=== PATIENT | female | born 1935 | race Caucasian/White ===

== ENCOUNTER 2019-03-28 20:03 | Emergency (ER) | payer MEDICARE, MEDICAID ==
--- NOTE | 2019-03-28 20:20 | ER Document Report ---
ED Extremity Problem, Upper - General Chief Complaint: Arm Injury Stated Complaint: FALL Time Seen by Provider: 03/28/19 20:08 Notes: Patient is an 83-year-old female who presents the emergency department with a chief complaint of right arm pain after a fall. She was turning and she felt dizzy and she fell on her right side. She was brought in by ambulance to the emergency department and she was given a total of 100 mcg of fentanyl in route. She denies any neck pain. She has a past medical history of hypertension, hyperlipidemia. Denies any chest pain, abdominal pain, hip pain, or any other symptoms. TRAVEL OUTSIDE OF THE [place] IN LAST 30 DAYS: No - Related Data Allergies/Adverse Reactions: No Known Allergies Allergy (Unverified 06/29/11 04:38) Past Medical History - Social History Smoking Status: Unknown if Ever Smoked Family History: Reviewed & Not Pertinent - Past Medical History Cardiac Medical History: Reports: Hx Hypertension Denies: Hx Coronary Artery Disease, Hx Heart Attack Pulmonary Medical History: Denies: Hx Asthma, Hx Bronchitis, Hx COPD, Hx Pneumonia Neurological Medical History: Denies: Hx Cerebrovascular Accident, Hx Seizures Endocrine Medical History: Reports: Hx Diabetes Mellitus Type 1, Hx Diabetes Mellitus Type 2 Musculoskeletal Medical History: Reports Hx Arthritis Past Surgical History: Reports: Hx Hysterectomy, Hx Orthopedic Surgery - L eft knee. Denies: Hx Pacemaker - Immunizations Hx Diphtheria, Pertussis, Tetanus Vaccination: Yes Hx Pneumococcal Vaccination: 11/08/11 Review of Systems - Review of Systems Notes: REVIEW OF SYSTEMS: CONSTITUTIONAL : Denies recent illness. Denies recent unintentional weight loss. Denies fever, chills, or sweats. EENT: Denies eye, ear, throat, or mouth pain, discharge, or symptoms. Denies nasal or sinus congestion. CARDIOVASCULAR: Denies chest pain. RESPIRATORY: Denies shortness of breath, cough, congestion, difficulty breathing, or wheezing. GASTROINTESTINAL: Denies nausea, vomiting, and diarrhea. Denies abdominal pain. Denies constipation. GENITOURINARY: Denies difficulty urinating, burning, blood in urine, urgency or frequency. MUSCULOSKELETAL: See HPI SKIN: Denies rash, itchiness, or lesions HEMATOLOGIC : Denies easy bruising or bleeding. LYMPHATIC: Denies swollen, painful, enlarged glands. NEUROLOGICAL: See HPI PSYCHIATRIC: Denies stress, anxiety, alteration in sleep patterns, or depression. All other systems reviewed and negative. Physical Exam - Vital signs Vitals: Resp BP Pulse Ox 19 148/116 H 100 03/28/19 20:10 03/28/19 20:10 03/28/19 20:10 - Notes Notes: PHYSICAL EXAMINATION: GENERAL: Appears well, healthy, well-nourished, no acute distress. HEAD: Normocephalic, atraumatic. EYES: PERRL, conjunctiva normal, all extraocular movements intact, sclera nonicteric ENT: Moist mucous membranes. NECK: Supple, no noticeable swelling, redness, rash. Normal range of motion. LUNGS: Equal breath sounds bilaterally and clear to auscultation. No wheezes rales or rhonchi. CARDIOVASCULAR: S1-S2, regular rate, regular rhythm. Radial pulses 2+, normal. ABDOMEN: Normoactive bowel sounds. Soft, nontender, no guarding, no rebound tenderness, and no masses palpated. EXTREMITIES: Tenderness and deformity to right forearm. No deformity to right hand, but tenderness noted throughout the whole hand. NEUROLOGICAL: Moves all extremities upon command. Strength 5/5 in all extremities. PSYCH: Normal mood, normal affect. SKIN: Warm, dry. No rash, lesions, ulcerations noted. Normal skin turgor. Course - Re-evaluation Re-evalutation: 03/28/19 20:28 Patient is able to flex and extend all digits with no difficulty. She does have a deformity noted to her right forearm. X-rays will be obtained. I will also do a CT of the head and chest x-ray to rule out any possible cause of why she fell. She will also have basic labs and a urinalysis done. 03/28/19 21:[address] of the head shows chronic changes, which is to be expected. She has a comminuted fracture noted in her wrist. She will be provided a splint. 03/28/19 22:51 Patient has a comminuted impacted intraocular intra-articular fracture of the distal radius and distal ulna. She also has a urinary tract infection, which is why she felt may be the reason why she felt dizzy and fell. She will be started on Keflex. She will stop follow-up with her orthopedic doctor, Dr. Medellin in [facility]. She will also follow-up with her primary care provider in regards to the urinary tract infection. Her urine will be sent for culture. She has a mild leukocytosis, which is most likely because she has a urinary tract infection. Her chemistries are unremarkable. Her troponin was negative. Her EKG was normal. Chest x-ray did not show any pneumonia. I discussed the chest x-ray with Dr. Gomez. Patient will be placed in a short arm splint. Follow-up precautions were given. Verbal discharge instructions were given to the patient. They verbalized understanding. They are stable for discharge. - Vital Signs Vital signs: Temp Pulse Resp BP Pulse Ox 98.2 F 19 140/85 H 99 03/28/19 20:14 03/28/19 23:02 03/28/19 23:02 03/28/19 23:02 - Laboratory Result Diagrams: 03/28/19 20:51 03/28/19 20:51 Laboratory results interpreted by me: 03/28/19 03/28/19 03/28/19 20:51 20:51 21:43 WBC 11.8 H RDW 14.1 H Seg Neutrophils % 79.6 H Absolute Neutrophils 9.4 H Chloride 111 H BUN 26 H Creatinine 1.44 H Est GFR ( Amer) 42 L Est GFR (Non-Af Amer) 35 L Urine Protein 30 H Urine Blood MODERATE H Ur Leukocyte Esterase LARGE H - EKG Interpretation by Me Additional EKG results interpreted by me: 03/28/19 20:29 Sinus rhythm. Rate 80. MO 144; QRS 94; QT 388; QTc [address] elevations or depressions noted. Discharge - Discharge Clinical Impression: Closed fracture distal radius and ulna Qualifiers: Encounter type: initial encounter Laterality: right Qualified Code(s): S52.501A - Unspecified fracture of the lower end of right radius, initial encounter for closed fracture Urinary tract infection Qualifiers: Urinary tract infection type: acute cystitis Hematuria presence: without hematuria Qualified Code(s): N30.00 - Acute cystitis without hematuria Condition: Stable Disposition: HOME, SELF-CARE Additional Instructions: You were seen today in the emergency department for a fall. You have a urinary tract infection, which may be the reason why you fell. You are being started on antibiotics. Please take all your antibiotics as prescribed. Please follow-up with orthopedics in regards to the fracture. You are also being provided pain medication. You can only take this medication if you absolutely need it. Please try to take Tylenol 1000 mg and ibuprofen 600 mg every 6 hours for your pain and only take the [place] for breakthrough pain. Prescriptions: Hydrocodone/Acetaminophen [[place] 5-325 mg Tablet] 1 tab PO Q6HP PRN #10 tablet PRN Reason: Cephalexin [Keflex] 500 mg PO BID #14 capsule Fluconazole [Diflucan] 150 mg PO ONCE PRN #2 tablet PRN Reason:
--- NOTE | 2019-03-28 20:54 | RADIOLOGY REPORT (SQ) ---
CT HEAD WITHOUT IV CONTRAST EXAM DATE: 03/28/2019 8:17 PM CDT HISTORY: fall. COMPARISON: 07/27/2014 TECHNIQUE: CT scan of the brain without IV contrast. This exam was performed according to our departmental dose-optimization program, which includes automated exposure control, adjustment of the mA and/or kV according to patient size and/or use of iterative reconstruction technique. FINDINGS: Diffuse involutional changes are present. There are scattered areas of hypoattenuation within the periventricular white matter, which likely represent chronic microvascular ischemia. Old lacunar infarct in the right basal ganglia. No evidence of acute infarction, intracranial hemorrhage, extra-axial fluid collection, or midline shift. No air-fluid levels are seen in the paranasal sinuses to suggest acute sinusitis. No depressed skull fracture. IMPRESSION: 1. No acute intracranial findings. 2. Senescent changes with chronic microvascular ischemia.
--- NOTE | 2019-03-28 21:03 | RADIOLOGY REPORT (SQ) ---
EXAM DESCRIPTION: XR CHEST 1 VIEW COMPLETED DATE/TME: 03/28/2019 20:17 CLINICAL HISTORY: 83 years, Female, fall COMPARISON: None. NUMBER OF VIEWS: One TECHNIQUE: Single frontal view of the chest was obtained. LIMITATIONS: None. FINDINGS: Cardiac and mediastinal contours are normal. Patchy opacity is evident about the periphery of the right lung base. No pleural effusion or pneumothorax. IMPRESSION: Patchy opacity about the periphery of the right lung base. Consider atelectasis or pneumonia to include aspiration. Suggest follow-up to clearing of (4-6 weeks). copyright 2010 [employer]- All Rights Reserved
--- NOTE | 2019-03-28 21:05 | RADIOLOGY REPORT (SQ) ---
EXAM DESCRIPTION: XR FOREARM 2 VIEWS COMPLETED DATE/TME: 03/28/2019 20:16 CLINICAL HISTORY: 83 years, Female, fall COMPARISON: None. NUMBER OF VIEWS: Three TECHNIQUE: Frontal, oblique, and lateral radiographs were obtained. LIMITATIONS: None. FINDINGS: Visualized is a comminuted impacted intra-articular fracture involving the distal radial metaphysis. In addition, there is a separate fracture deformity involving the distal ulnar metaphysis which appears to extend into the ulnar styloid. No additional osseous anomalies are appreciated. No large elbow joint effusion is appreciated. IMPRESSION: Comminuted, impacted intra-articular fracture involving the distal radial metaphysis with additional distal ulnar metaphyseal fracture extending into the ulnar styloid. copyright 2010 [employer]- All Rights Reserved
--- NOTE | 2019-03-28 21:06 | RADIOLOGY REPORT (SQ) ---
EXAM DESCRIPTION: XR HAND 3 OR MORE VIEWS COMPLETED DATE/TME: 03/28/2019 20:16 CLINICAL HISTORY: 83 years, Female, fall COMPARISON: None. NUMBER OF VIEWS: Three TECHNIQUE: Frontal, oblique, and lateral radiographs were obtained. LIMITATIONS: None. FINDINGS: Visualized is a comminuted intra-articular impaction fracture involving the distal radial metaphysis with additional fracture deformity involving the distal ulnar metaphysis extending to the ulnar styloid. The distal radial fracture deformity appears mildly dorsally angulated. No additional osseous anomalies are appreciated. IMPRESSION: Comminuted intra-articular impaction fracture involving the distal radial metaphysis with additional fracture deformity involving the distal ulnar metaphysis extending into the ulnar styloid. copyright 2010 [employer]- All Rights Reserved
[2019-03-28 21:15] LABS: ABSOLUTE BASOPHILS # (AUTO) 0.1 10^3/uL (0.0-0.2); ABSOLUTE EOSINOPHILS # (AUTO) 0.1 10^3/uL (0.0-0.6); ABSOLUTE LYMPHOCYTES (AUTO) 1.8 10^3/uL (0.5-4.7); ABSOLUTE MONOCYTES (AUTO) 0.4 10^3/uL (0.1-1.4); ABSOLUTE NEUT (AUTO) 9.4 10^3/uL (1.7-8.2); BASOPHILS % (AUTO) 0.8 % (0-2); HEMATOCRIT 38.6 % (36.0-47.0); HEMOGLOBIN 12.9 g/dL (12.0-15.5); LYMPHOCYTES % (AUTO) 15.2 % (13-45); MEAN CORPUSCULAR HEMOGLOBIN 29.2 pg (27.0-33.4); MEAN CORPUSCULAR HGB CONC 33.4 g/dL (32.0-36.0); MEAN CORPUSCULAR VOLUME 87 fl (80-97); MONOCYTES % (AUTO) 3.4 % (3-13); PLATELET COUNT 252 10^3/uL (150-450); RED BLOOD COUNT 4.42 10^6/uL (3.72-5.28); RED CELL DISTRIBUTION WIDTH 14.1 % (11.5-14.0); SEGMENTED NEUTROPHILS % (AUTO) 79.6 % (42-78); TOTAL CELLS COUNTED % (AUTO) 100 %; WHITE BLOOD COUNT 11.8 10^3/uL (4.0-10.5)
[2019-03-28] MEDS ORDERED: HYDROCODONE/ACETAMINOPHEN 5-325 MG TABLET PO ONE (21:16)
[2019-03-28 21:33] LABS: ALANINE AMINOTRANSFERASE 13 U/L (9-52); ALBUMIN 4.4 g/dL (3.5-5.0); ALKALINE PHOSPHATASE 71 U/L (38-126); ANION GAP 10 (5-19); ASPARTATE AMINO TRANSFERASE 23 U/L (14-36); BILIRUBIN,DIRECT 0.4 mg/dL (0.0-0.4); BILIRUBIN,TOTAL 0.5 mg/dL (0.2-1.3); BLOOD UREA NITROGEN 26 mg/dL (7-20); CALCIUM 9.3 mg/dL (8.4-10.2); CARBON DIOXIDE 22 mmol/L (22-30); CHLORIDE 111 mmol/L (98-107); CREATINE KINASE 74 U/L (30-135); GLUCOSE 110 mg/dL (75-110); POTASSIUM 4.2 mmol/L (3.6-5.0); TOTAL PROTEIN 7.8 g/dL (6.3-8.2)
[2019-03-28 21:45] LABS: CREATINE KINASE MB 0.55 ng/mL (<4.55)
[2019-03-28 21:49] LABS: TROPONIN I < 0.012 ng/mL
[2019-03-28 22:20] LABS: APPEARANCE,URINE TURBID; BILIRUBIN,URINE NEGATIVE (NEGATIVE); COLOR,URINE AMBER; GLUCOSE, URINE NEGATIVE (NEGATIVE); KETONES,URINE NEGATIVE (NEGATIVE); LEUKOCYTE ESTERASE,URINE LARGE (NEGATIVE); NITRITE,URINE NEGATIVE (NEGATIVE); PROTEIN,URINE 30 mg/dL (NEGATIVE); URINE SPECIFIC GRAVITY 1.018; UROBILINOGEN,URINE NEGATIVE mg/dL (<2.0)
[2019-03-28] MEDS ORDERED: HYDROCODONE/ACETAMINOPHEN 5-325 MG (6 TAB/ER DISP) PO PRN (22:48)
[2019-03-28] MEDS ORDERED: CEPHALEXIN 500 MG CAPSULE PO ONE (22:51)
[2019-03-28 23:33] VITALS: BP 140/85
--- NOTE | 2019-03-29 12:12 | EKG REPORT ---
SEVERITY:- DEFECTIVE ECG - SINUS RHYTHM LEADS V2 AND V3 INTERCHANGED.REPEAT EKG : Confirmed by: Lnua Feldman MD 29-Mar-2019 12:11:47
== END 2019-03-28 23:29 | disposition home or self-care (01) ==
LOC: ER 20:03
DX: S52.571A Other intraarticular fracture of lower end of right radius, initial encounter for closed fracture (principal); S52.691A Other fracture of lower end of right ulna, initial encounter for closed fracture; W10.8XXA Fall (on) (from) other stairs and steps, initial encounter; Y92.008 Other place in unspecified non-institutional (private) residence as the place of occurrence of the external cause; N30.00 Acute cystitis without hematuria; R42 Dizziness and giddiness; D72.829 Elevated white blood cell count, unspecified; I10 Essential (primary) hypertension; E11.9 Type 2 diabetes mellitus without complications
CPT/HCPCS: 93005; 99284; 36415; 87086; 82553; 82550; 85025; 87088; 80053; 81001; 84484; 71045; 73090; 73130; 70450; 93010; 29125; A9270 ×3

== ENCOUNTER 2020-10-07 12:30 | Emergency (ER) | payer MEDICARE, MEDICAID ==
[2020-10-07] MEDS ORDERED: NORMAL SALINE 1000 ML 1,000 ML IV ONE ×2 (13:46→14:28)
[2020-10-07 13:50] LABS: ABSOLUTE LYMPHOCYTES (AUTO) 1.2 10^3/uL (0.5-4.7); ABSOLUTE MONOCYTES (AUTO) 0.5 10^3/uL (0.1-1.4); ABSOLUTE NEUT (AUTO) 4.6 10^3/uL (1.7-8.2); BASOPHILS % (AUTO) 0.4 % (0-2); EOSINOPHILS % (AUTO) 0.3 % (0-6); HEMOGLOBIN 10.2 g/dL (12.0-15.5); LYMPHOCYTES % (AUTO) 19.1 % (13-45); MEAN CORPUSCULAR HEMOGLOBIN 29.2 pg (27.0-33.4); MEAN CORPUSCULAR HGB CONC 32.8 g/dL (32.0-36.0); MEAN CORPUSCULAR VOLUME 89 fl (80-97); MONOCYTES % (AUTO) 7.4 % (3-13); PLATELET COUNT 187 10^3/uL (150-450); RED BLOOD COUNT 3.48 10^6/uL (3.72-5.28); RED CELL DISTRIBUTION WIDTH 15.8 % (11.5-14.0); SEGMENTED NEUTROPHILS % (AUTO) 72.8 % (42-78); TOTAL CELLS COUNTED % (AUTO) 100 %; WHITE BLOOD COUNT 6.2 10^3/uL (4.0-10.5)
--- NOTE | 2020-10-07 14:02 | ER Document Report ---
Entered by DAYANNA VIZCAINO SCRIBE 10/07/20 1318 Acting as scribe for:JAH MARCIAL MD ED General - General Stated Complaint: SYNCOPE Time Seen by Provider: 10/07/20 13:14 Primary Care Provider: ELGIN OWENS MD [Primary Care Provider] - Follow up as needed Mode of Arrival: Medic Information source: Patient Notes: This 85 year old female patient brought in by EMS from [facility] presents to the ED for evaluation after having a syncopal episode just prior to arrival. Patient states that she was sitting at a table for about x1 hour and when she stood up too fast, "everything went black." She denies falling down and states that bystanders helped her to the floor. She states that shortly after lying on the floor, she felt back to normal. She has no complaints at this time. Denies any pain. Patient reports that she has similar episodes if she stands up too fast, is never been quite this bad. Review of pharmacy records shows the patient is on Plavix. She is aware she takes his medication, but does not know why her doctor with has her take it. She denies any cardiac problems, has never had a TIA. About 3 hours after the patient arrived, she began to complain about her left knee hurting. A focused exam on the knee shows a very tender swelling in the left medial and lateral suprapatellar knee region. TRAVEL OUTSIDE OF THE [place] IN LAST 30 DAYS: No - Related Data Allergies/Adverse Reactions: No Known Allergies Allergy (Unverified 06/29/11 04:38) Past Medical History - General Information source: Patient, [facility] Records - Social History Smoking Status: Never Smoker Cigarette use (# per day): No Chew tobacco use (# tins/day): No Smoking Education Provided: No Frequency of alcohol use: None Drug Abuse: None Lives with: Family Family History: Reviewed & Not Pertinent - Past Medical History Cardiac Medical History: Reports: Hx Hypertension Endocrine Medical History: Reports: Hx Diabetes Mellitus Type 2 GI Medical History: Reports: Hx Gastroesophageal Reflux Disease Musculoskeletal Medical History: Reports Hx Arthritis, Reports Hx Gout Psychiatric Medical History: Reports: Hx Anxiety Past Surgical History: Reports: Hx Hysterectomy, Hx Orthopedic Surgery - Left knee - Immunizations Hx Diphtheria, Pertussis, Tetanus Vaccination: Yes Hx Pneumococcal Vaccination: 11/08/11 Review of Systems - Review of Systems Constitutional: No symptoms reported EENT: No symptoms reported Cardiovascular: See HPI, Syncope Respiratory: Cough - She has had this for quite some time, she usually takes something like Delsym DM but she got something that is a DM medication with honey in it which seems to help. Gastrointestinal: No symptoms reported Genitourinary: No symptoms reported Female Genitourinary: No symptoms reported Musculoskeletal: See HPI. denies: Muscle pain Skin: No symptoms reported Hematologic/Lymphatic: No symptoms reported Neurological/Psychological: No symptoms reported -: Yes All other systems reviewed and negative Physical Exam - Vital signs Vitals: Resp 16 10/07/20 12:35 Interpretation: Normal - General General appearance: Alert In distress: None - HEENT Head: Normocephalic, Atraumatic Eyes: Normal Extraocular movements intact: Yes Pupils: PERRL Neck: Normal, Supple - Respiratory Respiratory status: No respiratory distress Chest status: Nontender Breath sounds: Nonproductive cough, Rhonchi Chest palpation: Normal - Cardiovascular Rhythm: Regular Heart sounds: Normal auscultation Murmur: No - Abdominal Inspection: Normal Distension: No distension Bowel sounds: Normal Tenderness: Nontender - Abdomen soft Organomegaly: No organomegaly - Back Back: Normal, Nontender - Extremities General upper extremity: Normal inspection General lower extremity: Other - The left knee and the medial and lateral suprapatellar region is quite swollen and tender. There is no ecchymosis noted. There is some tenderness to palpate the medial and lateral aspects of the knee. - Neurological Neuro grossly intact: Yes Orientation: AAOx4 [place] Coma Scale Eye Opening: Spontaneous [place] Coma Scale Verbal: Oriented [place] Coma Scale Motor: Obeys Commands [place] Coma Scale Total: 15 - Psychological Associated symptoms: Normal affect, Normal mood - Skin Skin Temperature: Warm Skin Moisture: Dry Skin Color: Normal Course - Re-evaluation Re-evalutation: 10/07/20 15:04 The patient was evaluated during the global COVID-19 pandemic and that diagnosis was suspected/considered upon their initial presentation. Their evaluation, treatment and testing was consistent with current guidelines for patients who present with complaints or symptoms that may be related to COVID-19. 10/07/20 17:35 After IV fluid hydration, the patient is feeling better except for her knee pain. Her blood pressures up to the 130 systolic range. A knee immobilizer was placed on the patient. The once we have or much too long for her leg, so the metal rods were taken out and cut down to size and replaced. - Vital Signs Vital signs: Temp Pulse Resp BP Pulse Ox 20 105/56 L 99 10/07/20 13:01 10/07/20 13:01 10/07/20 13:01 - Laboratory Results Result Diagrams: 10/07/20 13:31 10/07/20 13:31 Laboratory Results Interpreted: 10/07/20 10/07/20 13:31 13:31 RBC 3.48 L Hgb 10.2 L Hct 31.0 L RDW 15.8 H Chloride 112 H Carbon Dioxide 19 L Creatinine 1.46 H Est GFR ( Amer) 41 L Est GFR (MDRD) Non-Af 34 L Glucose 180 H Critical Laboratory Results Reviewed: No Critical Results - Radiology Results Radiology Results Interpreted: 10/07/20 17:28 Left knee x-ray shows small joint effusion with no bony abnormalities. Prior total knee arthroplasty. Critical Radiology Results Reviewed: No Critical Results - EKG Interpretation by Dc EKG shows normal: Sinus rhythm, [place], Intervals, QRS Complexes, ST-T Waves Rate: Normal - 87 Rhythm: NSR Discharge - Discharge Clinical Impression: Syncope due to orthostatic hypotension, Dehydration, Encounter for laboratory testing for COVID-19 virus Left knee injury Qualifiers: Encounter type: initial encounter Qualified Code(s): S89.92XA - Unspecified injury of left lower leg, initial encounter Condition: Stable Disposition: HOME, SELF-CARE Instructions: COVID-19 Guidance for Persons Under Investigation Additional Instructions: You had a syncopal or passing out episode today when you stood up too quickly. This occurs often to elderly people. You are also a little dehydrated. It appears you have injured your left knee during your fall. Use the knee immobilizer to provide support to the knee. Elevate your left leg is much as possible. Use your walker when you get home. Use ice packs on the knee off and on for the next 2 to 3 days. Drink plenty of fluids. Take Tylenol for pain as needed. Take Robitussin-DM or Delsym DM for your cough. Follow-up with your primary care provider if not improving. Self isolate at home until the results of the Covid testing. RETURN TO THE EMERGENCY ROOM IF ANY NEW OR WORSENING SYMPTOMS. Referrals: ELGIN OWENS MD [Primary Care Provider] - Follow up as needed I personally performed the services described in the documentation, reviewed and edited the documentation which was dictated to the scribe in my presence, and it accurately records my words and actions.
[2020-10-07 14:11] LABS: ALBUMIN 3.5 g/dL (3.5-5.0); ALKALINE PHOSPHATASE 77 U/L (38-126); ANION GAP 8 (5-19); ASPARTATE AMINO TRANSFERASE 26 U/L (14-36); BILIRUBIN,DIRECT 0.2 mg/dL (0.0-0.4); BILIRUBIN,TOTAL 0.4 mg/dL (0.2-1.3); BLOOD UREA NITROGEN 20 mg/dL (7-20); CALCIUM 8.8 mg/dL (8.4-10.2); CARBON DIOXIDE 19 mmol/L (22-30); CHLORIDE 112 mmol/L (98-107); CREATINE KINASE 62 U/L (30-135); GLUCOSE 180 mg/dL (75-110); POTASSIUM 4.7 mmol/L (3.6-5.0); TOTAL PROTEIN 6.4 g/dL (6.3-8.2)
[2020-10-07 14:32] LABS: CREATINE KINASE MB < 0.22 ng/mL (<4.55); TROPONIN I < 0.012 ng/mL
[2020-10-07] MEDS ORDERED: ACETAMINOPHEN 325 MG TABLET PO ONE (15:25)
--- NOTE | 2020-10-07 15:39 | EKG REPORT ---
SEVERITY:- NORMAL ECG - SINUS RHYTHM : Confirmed by: Ernesto Leyva MD 07-Oct-2020 15:38:48
[2020-10-07 16:59] LABS: APPEARANCE,URINE CLEAR; BILIRUBIN,URINE NEGATIVE (NEGATIVE); COLOR,URINE YELLOW; GLUCOSE, URINE NEGATIVE (NEGATIVE); KETONES,URINE NEGATIVE (NEGATIVE); LEUKOCYTE ESTERASE,URINE NEGATIVE (NEGATIVE); NITRITE,URINE NEGATIVE (NEGATIVE); PROTEIN,URINE NEGATIVE (NEGATIVE); URINE SPECIFIC GRAVITY 1.012; UROBILINOGEN,URINE NEGATIVE mg/dL (<2.0)
--- NOTE | 2020-10-07 17:24 | RADIOLOGY REPORT (SQ) ---
EXAM DESCRIPTION: KNEE LEFT 3 VIEWS IMAGES COMPLETED DATE/TIME: 10/07/2020 4:26 pm REASON FOR STUDY: Pain and swelling, prior total knee. COMPARISON: None. NUMBER OF VIEWS: Four views. TECHNIQUE: AP, lateral, and both oblique radiographic images acquired of the left knee. LIMITATIONS: None. FINDINGS: MINERALIZATION: Normal. BONES: Total knee arthroplasty in good position. No acute fracture or dislocation. No worrisome bon e lesions. JOINT: There appears to be a small joint effusion. SOFT TISSUES: No soft tissue swelling. No radio-opaque foreign body. OTHER: No other significant finding. IMPRESSION: Total knee arthroplasty. Small joint effusion. TECHNICAL DOCUMENTATION: JOB ID: [id number] 2010 [employer]- All Rights Reserved Reading location - IP/workstation name: [email or web address]
[2020-10-07 18:03] VITALS: BP 131/78
== END 2020-10-07 18:18 | disposition home or self-care (01) ==
LOC: ER 12:30
DX: U07.1 COVID-19 (principal); I95.1 Orthostatic hypotension; S89.92XA Unspecified injury of left lower leg, initial encounter; X58.XXXA Exposure to other specified factors, initial encounter; M25.562 Pain in left knee; M25.462 Effusion, left knee; E86.0 Dehydration; R05 Cough; R09.89 Other specified symptoms and signs involving the circulatory and respiratory systems; I10 Essential (primary) hypertension; E11.9 Type 2 diabetes mellitus without complications; Z96.652 Presence of left artificial knee joint; Z79.02 Long term (current) use of antithrombotics/antiplatelets
CPT/HCPCS: 93005; 99285; 96360; 96361; 36415; 82553; 82550; 85025; 80053; 81001; 84484; 73562; 93010; U0003; A9270; J7030; C9803; 87635